=== PATIENT | female | born 1980 | race Caucasian/White ===

== ENCOUNTER → 2020-10-31 | Outpatient (CLI) | payer OTHER ==
[2020-11-01 08:14] LABS: VITAMIN D, 25-HYDROXY 17.5 ng/mL (30.0-100.0)
[2020-11-01 11:14] LABS: COMPLEMENT C3, SERUM 168 mg/dL (82-167); COMPLEMENT C4, SERUM 40 mg/dL (12-38)
[2020-11-01 17:09] LABS: EBV AB VCA, IGG >600.0 U/mL (0.0-17.9); EBV AB VCA, IGM <36.0 U/mL (0.0-35.9)
== END ==
LOC: LAB 12:42
PROVIDERS: Nurse Practitioner Family
DX: D89.9 Disorder involving the immune mechanism, unspecified (principal); M25.50 Pain in unspecified joint; E55.9 Vitamin D deficiency, unspecified; B27.90 Infectious mononucleosis, unspecified without complication
CPT/HCPCS: 36415; 85652; 86140; 86160; 86162; 86200

== ENCOUNTER → 2021-01-31 | Outpatient (CLI) | payer OTHER ==
[2021-01-31 13:00] LABS: HEMOGLOBIN 12.7 gm/dl (12.3-15.3); RED BLOOD COUNT 4.59 M/UL (4.00-5.10); WHITE BLOOD COUNT 8.5 K/UL (4.5-11.0)
[2021-01-31 13:36] LABS: BUN/CREATININE RATIO 16 (0-10)
[2021-02-01 10:13] LABS: HBSAG SCREEN Negative (Negative); HCV AB <0.1 (0.0-0.9); HEP B CORE AB, TOT Negative (Negative)
[2021-02-01 14:13] LABS: RHEUMATOID ARTHRITIS FACTOR <10.0 IU/mL (<14.0)
[2021-02-01 15:13] LABS: ANTICARDIOLIPIN AB, IGG, QN <9 GPL U/mL (0-14); ANTICARDIOLIPIN AB, IGM, QN 20 MPL U/mL (0-12); TREPONEMA PALLIDUM ANTIBODIES Non Reactive (Non Reactive)
[2021-02-04 18:11] LABS: LUPUS REFLEX INTERPRETATION Comment: (.); PT 10.2 sec (9.1-12.0); PT 1:1NP 10.1 sec (9.1-12.0); PTT-LA 31.1 sec (0.0-51.9); THROMBIN TIME 16.9 sec (0.0-23.0)
[2021-02-05 03:07] LABS: QUANTIFERON MITOGEN VALUE >10.00 IU/mL (.); QUANTIFERON TB1 AG VALUE 0.04 IU/mL (.); QUANTIFERON TB2 AG VALUE 0.06 IU/mL (.); QUANTIFERON-TB GOLD PLUS Negative (Negative)
== END ==
LOC: LAB 11:38
PROVIDERS: Nurse Practitioner Family
DX: Z11.59 Encounter for screening for other viral diseases (principal); Z79.899 Other long term (current) drug therapy; R76.0 Raised antibody titer
CPT/HCPCS: 36415; 80053; 83520; 85025; 85611; 85652; 86140; 86200; 86431; 86704; 86780; 86803; 87340